=== PATIENT | male | born 1970 | race Caucasian/White ===

== ENCOUNTER 2016-09-04 19:14 | Emergency (ER) | payer BC ==
[~2016-09-04] VITALS: Ht 172.7 cm; Wt 100.0 kg
[2016-09-04 19:50] VITALS: BP 105/58
== END 2016-09-04 20:56 | disposition left against medical advice (07) ==
LOC: ER 19:40
DX: Z53.21 Procedure and treatment not carried out due to patient leaving prior to being seen by health care provider (principal)
CPT/HCPCS: J7030; Z7610